=== PATIENT | female | born 1960 | race Caucasian/White ===

== ENCOUNTER 2016-12-15 05:59 | Day surgery (SDC) | payer BC ==
[2016-12-13 16:31] LABS: HEMATOCRIT 43.2 % (36.0-48.0); HEMOGLOBIN 15.2 g/dL (12.0-16.0)
[2016-12-13 17:39] LABS: CALCIUM, SERUM 9.1 MG/DL (8.5-10.4); CHLORIDE, SERUM 109 MMOL/L (96-112); CO2 (CARBON DIOXIDE) 23 MMOL/L (24-34); CREATININE 0.88 MG/DL (0.55-1.02); GFR AFRICAN AMERICAN 86 ML/MIN (>=60); GFR NON AFRICAN AMERICAN 74 ML/MIN (>=60); GLUCOSE, SERUM 121 MG/DL (60-99); SODIUM, SERUM 143 MMOL/L (135-148)
[2016-12-13 17:42] LABS: BUN (BLOOD UREA NITROGEN) 9 MG/DL (6-23); POTASSIUM, SERUM 4.1 MMOL/L (3.5-5.3)
--- NOTE | ~2016-12-15 | OP ---
Record Of Operation [facility] [address] [place]. [address] NAME: ROJELIO ARANA : 62 STATUS : [facility]#: [id number] AGE: 56 ADM/REG DATE : 12/15/16 MR#: [id number] REPORT SERV DATE: 12/15/16 DICTATED BY: GRACE LOOMIS DATE: 12/15/16 REPORT STATUS : Draft TRANSCRIBED BY: CATHY DATE: 12/15/16 DATE OF PROCEDURE: 12/15/2016 PREPROCEDURE DIAGNOSIS: 6 mm distal right ureteral calculus. POSTPROCEDURE DIAGNOSIS: 6 mm distal right ureteral calculus. PROCEDURE: Right ESWL. BRUSH FINISHER: Nikki Huerta. ANESTHESIA: General. HISTORY: Mrs. Arana is a 56-year-old white female with a symptomatic distal right ureteral calculus. We discussed treatment options, and she requested right ESWL. Risks specific to this procedure include, but not limited to bleeding, infection, incomplete stone fragmentation, Steinstrasse, hematoma, injury to neighboring organs, need for further urologic procedures, anesthesia complications, and so forth. I answered all her questions, I believe, to her satisfaction. Subsequently, she requested the procedure and provided her informed written consent. PROCEDURE IN DETAIL: On 12/15/2016, the patient was brought to the lithotripsy suite. She was placed supine on the Dornier Compact Delta II Lithotriptor. Biplanar fluoroscopy was used to localize the right ureteral calculus. A time-out was called. The proper patient and procedure were confirmed. Levaquin was administered as a perioperative antibiotic. At this time, the Anesthesia team established general anesthesia via endotracheal tube. Subsequently we delivered a total of 3000 shocks at a maximum power level of 5 and rate of 120 shocks per minute to the stone. Fluoroscopy time was 1 minute 25 seconds. The patient tolerated the procedure well without any immediate complications, was awakened, extubated, and transferred to the recovery area in stable condition. ОЛЬГА/CATHY Grace Loomis M.D. / [id number] CC: Grace Loomis M.D.
[~2016-12-15 05:59] MED LIST: ALOE VERA PO; AMB10 PO; ASA5GR PO; BIO-FLAX1000 MG PO; DIAM250B PO; DYAZIDE1 CAP PO; EFFEX75 PO; EFFEXOR XR150 MG PO; ESTRACE1 MG PO; FISH OIL1200 MG PO; FLEX PO; GNP FLAX SEE1000 MG OR; HYDROCHLOROT12.5 MG PO; HYOMAX-FT0.125 MG PO; IBU800 PO; KLOR-CON M2020 MEQ PO; L40 PO; LEVOTHYROXIN50 MCG PO; LIDODERM T; LIPITOR10 PO; LORTAB10 PO; MAX25 PO; MICROZIDE PO; MULTIPLE VIT PO; MULTIVIT/MIN PO; OMEGA PO; PEP20 PO; PR25 PO; STOOL SOFTEN240 MG PO; SYN.05 PO; TOPXL50 PO; VITAMIN B 12 IM; VITAMIN B-2100 MG PO; XANAX1 MG PO; ZOFRANODT8 PO; ZONEGRAN PO; [UNRECOGNIZED DRUG - OTHER] OR; [UNRECOGNIZED DRUG - OTHER] PO; [UNRECOGNIZED DRUG - OTHER] PO
== END 2016-12-15 11:00 | disposition home or self-care (01) ==
LOC: SDC 05:59
PROVIDERS: Urology
PROC: 0TF6XZZ Fragmentation in Right Ureter, External Approach (ICD-10-PCS; principal; 2016-12-15 08:00)
DX: N20.1 Calculus of ureter (principal); E03.9 Hypothyroidism, unspecified; M79.7 Fibromyalgia; K31.84 Gastroparesis; Z88.2 Allergy status to sulfonamides; Z88.5 Allergy status to narcotic agent; Z90.49 Acquired absence of other specified parts of digestive tract; Z90.721 Acquired absence of ovaries, unilateral; Z98.890 Other specified postprocedural states
CPT/HCPCS: 50590; 74000; 80048; 85014; 85018; 93005; A9270-GY; J0330; J1170; J1885; J2250; J2405; J3010